=== PATIENT | female | born 2000 ===

== ENCOUNTER 2022-02-23 09:34 | Emergency (ER) | payer OTHER ==
[2022-02-23] MEDS ORDERED: Sodium Chloride 0.9% 10 ML Syringe FLUSH PRN (10:03)
[2022-02-23] MEDS ORDERED: Lactated Ringers 1,000 ML IV ONE (10:05)
[2022-02-23] MEDS ORDERED: Naloxone 0.4 MG/ML SDV IVPUSH ONE (10:10)
[2022-02-23] MEDS ORDERED: Iopamidol 612 MG/ML 100 ML Bottle IV PRN (10:22)
[2022-02-23] MEDS ORDERED: Sodium Chloride 0.9% 100 ML IV SCH (10:30)
[2022-02-25 07:35] LABS: CHLAMYDIA TRACHOMATIS, NAA Negative (Negative); NEISSERIA GONORRHOEAE, NAA Negative (Negative)
== END 2022-02-23 14:14 ==
LOC: JP.ED 09:34
DX: T18.108A Unspecified foreign body in esophagus causing other injury, initial encounter (principal); F17.210 Nicotine dependence, cigarettes, uncomplicated
CPT/HCPCS: 36415; 70450; 71260; 72125; 72170; 80053; 80305; 80307; 83605; 83690; 84703; 85025; 87491; 87591; 99285; J3490; J7120; Q9967